=== PATIENT | female | born 1985 | race African-American/Black ===

== ENCOUNTER 2020-11-28 12:10 | Inpatient (IN) ==
[2020-11-28] MEDS ORDERED: ceFAZolin 2,000 MG/50 ML DUPLEX IV ONE (12:20)
[2020-11-28] MEDS ORDERED: CITRIC ACID/SODIUM CITRATE 30 ML UDCUP PO ONE (12:20)
[2020-11-28] MEDS ORDERED: FAMOTIDINE 20 MG/2 ML VIAL IV ONE (12:20)
[2020-11-28] MEDS ORDERED: LACTATED RINGERS 1,000 ML IV SCH ×2 (12:30→16:30)
[2020-11-28 12:44] LABS: Basophils % 0.4 % (0.0-0.8); Eosinophils % 0.7 % (0.00-10.9); Hematocrit 27.6 VOL% (35.7-47.0); Hemoglobin 8.9 GM/DL (12.0-16.0); Immature Granulocytes % 0.2 %; Immature Granulocytes Absolute 0.01 #; Lymphocytes # 1.8 10*3/uL (1.4-4.0); Lymphocytes % 34.4 % (21.3-54.2); Mean Corpuscular HGB Conc 32.2 GM/DL (32-36); Mean Corpuscular Volume 91.1 FL (87-102); Mean Platelet Volume 10.6 FL (9.6-12.0); Monocytes % 10.7 % (1.7-12.7); Neutrophils % 53.6 % (38.7-73.9); Platelet Count 172 T/CUMM (130-400); Red Blood Count 3.03 MC/CUMM (3.8-5.5); Red Cell Distribution Width 13.3 % (9.3-17.3); White Blood Count 5.4 T/CUMM (4-12)
[2020-11-28 12:57] LABS: INR 0.9; PT Patient Result 9.8 SECS (10.5-12.0); Partial Thromboplastin Time 25.4 SECS (23.9-33.8)
[2020-11-28 13:07] LABS: Albumin 2.6 G/DL (3.4-5.0); Bilirubin,Direct 0.25 MG/DL (0.0-0.20); Bilirubin,Total 0.8 MG/DL (0.20-1.00); Calcium 8.9 MG/DL (8.5-10.1); Osmolality,Calculated 273.5 MOS/KG (273-304); Potassium 3.5 MMOL/L (3.5-5.1); Total Protein 6.8 G/DL (6.4-8.2); Uric Acid 6.3 MG/DL (2.6-6.0)
[2020-11-28 13:43] LABS: Amorphous Crystals,Urine Occasional /HPF (Few); Bacteria,Urine Many /HPF (Few); Bilirubin,Urine Negative (Negative); Blood, Urine Negative (Negative); Glucose,Urine (UA) Negative (Negative); Ketones,Urine Negative (Negative); Mucus,Urine Moderate /LPF (Occasional); Nitrite,Urine Negative (Negative); Protein,Urine 30 MG/DL; Squamous Epithelial Cell,Urine Occasional /HPF (0-10); Urine Appearance CLOUDY (Clear); Urine Color Amber (Yellow); Urine Specific Gravity 1.021 (1.001-1.035)
[2020-11-28 13:45] LABS: Lymphocytes 30 % (20-55); Microcytosis 1+; Segmented Neutrophils 65 % (50-85); Total Cells Counted 100
[2020-11-28 13:46] LABS: Atypical Lymphocytes Few; Macrocytosis 1+; Platelet Estimate Adequate; Polychromasia Slight
[2020-11-28 14:02] LABS: Protein/Creatinine Ratio,Urine 0.2 RATIO
[2020-11-28] MEDS ORDERED: ONDANSETRON 4 MG/2 ML VIAL ONE (14:55)
[2020-11-28] MEDS ORDERED: BUPIVACAINE SPINAL 0.75% 2 ML AMP SPINAL ONE (14:55)
[2020-11-28] MEDS ORDERED: OXYTOCIN/LR 30 UNIT/1,000 ML BAG IV ONE (14:59)
[2020-11-28] MEDS ORDERED: METHYLERGONOVINE 0.2 MG/1 ML AMP ONE (14:59)
[2020-11-28] MEDS ORDERED: OXYTOCIN 10 UNIT/ML VIAL IM ONE (14:59)
[2020-11-28] MEDS ORDERED: miSOPROStoL 200 MCG TABLET ONE (14:59)
[2020-11-28] MEDS ORDERED: TRANEXAMIC ACID 1,000 MG/10 ML VIAL ONE (14:59)
[2020-11-28] MEDS ORDERED: CARBOPROST TROMETHAMINE 250 MCG/ML AMP IM ONE (15:00)
[2020-11-28] MEDS ORDERED: PHENYLEPHRINE 1 MG/10 ML SYRINGE IV ONE (15:39)
[2020-11-28] MEDS ORDERED: GLYCOPYRROLATE 0.4 MG/2 ML VIAL ONE ×2 (15:39)
[2020-11-28] MEDS ORDERED: LACTATED RINGERS 1,000 ML IV ONE (15:42)
[2020-11-28 15:55] LABS: Cord Venous Blood HCO3 23.7 MMOL/L; Cord Venous Blood PCO2 44.7 MMHG; Cord Venous Blood PO2 28.6 MMHG
[2020-11-28] MEDS ORDERED: RHO(D) IMMUNE GLOBULIN 300 MCG SYRINGE IM ONE (16:26)
[2020-11-28] MEDS ORDERED: ONDANSETRON 4 MG/2 ML VIAL IV PRN (16:26)
[2020-11-28] MEDS ORDERED: ACETAMINOPHEN 325 MG TABLET PO PRN (16:26)
[2020-11-28] MEDS ORDERED: OXYTOCIN/LR 20 UNIT/1,000 ML BAG IV ONE (16:26)
[2020-11-28] MEDS ORDERED: IBUPROFEN 800 MG TABLET PO PRN (16:26)
[2020-11-28] MEDS ORDERED: hydrOXYzine HCL 25 MG/1 ML VIAL IM PRN (16:33)
[2020-11-28] MEDS ORDERED: diphenhydrAMINE 50 MG/1 ML VIAL IV PRN (16:33)
[2020-11-28] MEDS ORDERED: HYDROmorphone 2 MG/1 ML VIAL IV PRN (16:33)
[2020-11-28 18:42] LABS: Bacteria,Urine Occasional /HPF (Few); Bilirubin,Urine Negative (Negative); Blood, Urine Negative (Negative); Glucose,Urine (UA) Negative (Negative); Hyaline Casts,Urine 1 /LPF (0-3); Ketones,Urine 5 mg/dL (Negative); Mucus,Urine Occasional /LPF (Occasional); Nitrite,Urine Negative (Negative); Protein,Urine 100 MG/DL; RBC,Urine 3 /HPF (0-4); Squamous Epithelial Cell,Urine Occasional /HPF (0-10); Urine Appearance CLEAR (Clear); Urine Color Yellow (Yellow); Urine Specific Gravity 1.014 (1.001-1.035); Urine Urobilinogen < 2.0 EU/DL (0.2-1.0)
[2020-11-28] MEDS: DOCUSATE SODIUM 100 MG CAPSULE PO SCH (20:18)
[2020-11-28] MEDS ORDERED: NIFEdipine 10 MG CAPSULE PO ONE (21:42)
[2020-11-28 23:59] LABS: Basophils % 0.4 % (0.0-0.8); Eosinophils % 0.1 % (0.00-10.9); Hematocrit 26.6 VOL% (35.7-47.0); Hemoglobin 8.5 GM/DL (12.0-16.0); Immature Granulocytes % 0.2 %; Immature Granulocytes Absolute 0.02 #; Lymphocytes # 1.5 10*3/uL (1.4-4.0); Lymphocytes % 18.6 % (21.3-54.2); Mean Corpuscular Volume 91.1 FL (87-102); Mean Platelet Volume 10.8 FL (9.6-12.0); Monocytes % 7.9 % (1.7-12.7); Neutrophils % 72.8 % (38.7-73.9); Platelet Count 157 T/CUMM (130-400); Red Blood Count 2.92 MC/CUMM (3.8-5.5); Red Cell Distribution Width 13.5 % (9.3-17.3); White Blood Count 8.2 T/CUMM (4-12)
[2020-11-29] MEDS: ACETAMINOPHEN 500 MG TABLET PO SCH ×3 (02:15→18:52)
[2020-11-29] MEDS: KETOROLAC 30 MG/1 ML VIAL IV SCH ×3 (02:15→18:53)
[2020-11-29 08:21] LABS: Basophils % 0.3 % (0.0-0.8); Eosinophils % 0.5 % (0.00-10.9); Hematocrit 28.4 VOL% (35.7-47.0); Hemoglobin 9.2 GM/DL (12.0-16.0); Immature Granulocytes % 0.3 %; Immature Granulocytes Absolute 0.02 #; Lymphocytes # 1.4 10*3/uL (1.4-4.0); Lymphocytes % 18.4 % (21.3-54.2); Mean Corpuscular HGB Conc 32.4 GM/DL (32-36); Mean Corpuscular Volume 90.2 FL (87-102); Mean Platelet Volume 11.4 FL (9.6-12.0); Monocytes % 8.1 % (1.7-12.7); Neutrophils % 72.4 % (38.7-73.9); Platelet Count 187 T/CUMM (130-400); Red Blood Count 3.15 MC/CUMM (3.8-5.5); Red Cell Distribution Width 13.6 % (9.3-17.3); White Blood Count 7.7 T/CUMM (4-12)
[2020-11-29] MEDS: SIMETHICONE CHEW 80 MG TABLET PO PRN (09:45)
[2020-11-29] MEDS: MAGNESIUM HYDROXIDE SUSP 30 ML UDCUP PO PRN ×2 (09:45→19:59)
[2020-11-29] MEDS: DOCUSATE SODIUM 100 MG CAPSULE PO SCH ×2 (09:45→19:59)
[2020-11-29] MEDS: METOCLOPRAMIDE 10 MG TABLET PO SCH ×2 (09:46→16:35)
[2020-11-29] MEDS: MULTIVITAMIN (PRENATAL) TABLET PO SCH (09:46)
[2020-11-30] MEDS: METOCLOPRAMIDE 10 MG TABLET PO SCH ×2 (00:08→08:39)
[2020-11-30 08:36] VITALS: BP 131/87
[2020-11-30] MEDS: MAGNESIUM HYDROXIDE SUSP 30 ML UDCUP PO PRN (08:39)
[2020-11-30] MEDS: DOCUSATE SODIUM 100 MG CAPSULE PO SCH (08:39)
[2020-11-30] MEDS: SIMETHICONE CHEW 80 MG TABLET PO PRN (08:39)
[2020-11-30] MEDS: MULTIVITAMIN (PRENATAL) TABLET PO SCH (08:39)
== END 2020-11-30 15:45 | disposition home or self-care (01) | DRG 540 ==
LOC: N.LDOUT 12:10 → N.LD 12:11 → N.OB 23:01
PROVIDERS: ADMIT Obstetrics & Gynecology; ATTEND Obstetrics & Gynecology
PROC: LDCSECT (ICD-10-PCS; 2020-11-28 15:15)

== ENCOUNTER 2022-03-04 12:02 | Observation (INO) ==
[2022-03-04] MEDS ORDERED: LACTATED RINGERS 1,000 ML IV SCH (12:30)
[2022-03-04 12:53] LABS: Basophils % 0.5 % (0.0-0.8); Eosinophils % 0.6 % (0.00-10.9); Hematocrit 37.9 VOL% (35.7-47.0); Hemoglobin 13.1 GM/DL (12.0-16.0); Immature Granulocytes % 0.3 %; Immature Granulocytes Absolute 0.02 #; Lymphocytes # 1.6 10*3/uL (1.4-4.0); Lymphocytes % 25.2 % (21.3-54.2); Mean Corpuscular HGB Conc 34.6 GM/DL (32-36); Mean Corpuscular Volume 86.7 FL (87-102); Mean Platelet Volume 9.6 FL (9.6-12.0); Monocytes # 0.5 10*3/uL (0.11-0.8); Monocytes % 8.5 % (1.7-12.7); Neutrophils % 64.9 % (38.7-73.9); Platelet Count 302 T/CUMM (130-400); Red Blood Count 4.37 MC/CUMM (3.8-5.5); Red Cell Distribution Width 11.9 % (9.3-17.3); White Blood Count 6.3 T/CUMM (4-12)
[2022-03-04] MEDS ORDERED: ONDANSETRON 4 MG/2 ML VIAL IV PRN (12:54)
[2022-03-04 12:58] LABS: Mucus,Urine Many /LPF (Occasional); Protein,Urine 100 mg/dL (Negative); RBC,Urine 1 /HPF (0-4); Squamous Epithelial Cell,Urine Few /HPF (0-10); Urine Appearance Slightly Hazy (Clear); Urine Color Brown (Yellow); Urine Specific Gravity > 1.030 (1.001-1.035); Urine pH 5.5 (4.5-8.0)
[2022-03-04 12:59] LABS: Bilirubin,Urine Large mg/dL (Negative); Glucose,Urine (UA) 100 mg/dL (Negative); Ketones,Urine 40 mg/dL (Negative)
[2022-03-04 13:00] LABS: Blood, Urine Trace mg/dL (Negative); Urine Urobilinogen > 8.0 eU/dL (<2.0)
[2022-03-04 13:01] LABS: Nitrite,Urine Positive (Negative)
[2022-03-04 13:14] LABS: Albumin 3.5 G/DL (3.4-5.0); Bilirubin,Total 2.3 MG/DL (0.20-1.00); Calcium 9.7 MG/DL (8.5-10.1); Osmolality,Calculated 270.1 MOS/KG (273-304); Potassium 2.7 MMOL/L (3.5-5.1)
[2022-03-04] MEDS ORDERED: POTASSIUM CHLORIDE RIDER 10 MEQ/100 ML PREMIX IV SCH (14:00)
[2022-03-04] MEDS: LACTATED RINGERS 1,000 ML IV SCH (14:05)
[2022-03-04] MEDS: LEVOFLOXACIN INJ 500 MG/100 ML PREMIX IV SCH (14:05)
[2022-03-04] MEDS: POTASSIUM CHLORIDE RIDER 10 MEQ/100 ML PREMIX IV SCH ×6 (16:03→22:52)
[2022-03-04] MEDS ORDERED: ONDANSETRON 4 MG/2 ML VIAL IV SCH (19:30)
[2022-03-04] MEDS ORDERED: ACETAMINOPHEN 500 MG TABLET PO PRN (20:07)
[2022-03-04] MEDS ORDERED: ONDANSETRON 4 MG/2 ML VIAL IV ONE (21:30)
[2022-03-05] MEDS: POTASSIUM CHLORIDE RIDER 10 MEQ/100 ML PREMIX IV SCH (00:06)
[2022-03-05] MEDS ORDERED: POTASSIUM BICARB EFFERVESCENT 20 MEQ TAB.EFF PO SCH ×2 (01:00→23:45)
[2022-03-05] MEDS: ONDANSETRON 4 MG/2 ML VIAL IV SCH ×2 (03:54→09:15)
[2022-03-05] MEDS: POTASSIUM CHLORIDE 20 MEQ TABLET PO PRN (09:17)
[2022-03-05] MEDS: POTASSIUM CHLORIDE RIDER 10 MEQ/100 ML PREMIX IV PRN ×3 (11:39→17:39)
[2022-03-05] MEDS: LACTATED RINGERS 1,000 ML IV SCH (13:30)
[2022-03-05] MEDS: LEVOFLOXACIN INJ 500 MG/100 ML PREMIX IV SCH (14:42)
[2022-03-05] MEDS ORDERED: POTASSIUM PHOS/SOD PHOS POWDER 250 MG PACK PO SCH (23:45)
[2022-03-06] MEDS: ONDANSETRON 4 MG/2 ML VIAL IV PRN ×3 (01:08→23:31)
[2022-03-06] MEDS: POTASSIUM CHLORIDE 20 MEQ TABLET PO PRN ×3 (02:59→07:00)
[2022-03-06] MEDS: POTASSIUM BICARB EFFERVESCENT 20 MEQ TAB.EFF PO SCH ×2 (02:59→16:51)
[2022-03-06] MEDS: LACTATED RINGERS 1,000 ML IV SCH ×2 (09:12→16:53)
[2022-03-06] MEDS: LEVOFLOXACIN INJ 500 MG/100 ML PREMIX IV SCH (15:00)
[2022-03-07] MEDS ORDERED: ONDANSETRON ODT 4 MG TABLET PO PRN (08:28)
[2022-03-07 10:02] VITALS: BP 104/65
== END 2022-03-07 12:45 | disposition home or self-care (01) ==
LOC: N.OB 12:02 → N.LDOUT 12:02 → N.LD 12:06 → N.OB 17:50
PROVIDERS: ADMIT Obstetrics & Gynecology; ATTEND Obstetrics & Gynecology